=== PATIENT | female | born 1995 | race Two or more races ===

== ENCOUNTER 2018-06-26 19:48 | Emergency (ER) | payer MEDICAID ==
[~2018-06-26] VITALS: Ht 167.6 cm; Wt 60.0 kg
[2018-06-26 19:52] VITALS: BP 131/56
== END 2018-06-26 21:14 | disposition left against medical advice (07) ==
LOC: ER 19:48
DX: R10.9 Unspecified abdominal pain (principal); Z53.21 Procedure and treatment not carried out due to patient leaving prior to being seen by health care provider